=== PATIENT | female | born 1935 | race Caucasian/White ===

== ENCOUNTER 2021-12-14 16:39 | Observation (INO) ==
[2021-12-14] MEDS ORDERED: Naloxone 0.4 MG/ML INJ IVP PRN (20:23)
[2021-12-14] MEDS ORDERED: Melatonin 3 MG TABLET PO PRN (20:23)
[2021-12-14] MEDS ORDERED: Acetaminophen 325 MG TABLET PO PRN (20:23)
[2021-12-14] MEDS ORDERED: MOM Conc 10 ML UD.LIQ PO PRN (20:23)
[2021-12-14] MEDS ORDERED: Ondansetron ODT 4 MG TAB.RAPDIS SL PRN (20:23)
[2021-12-14] MEDS ORDERED: *HR* Heparin 5,000 UNIT/ML VIAL IVP PRN ×2 (21:36)
[2021-12-14] MEDS ORDERED: Heparin 25,000UNIT/250ML 1/2NS 25,000 UNIT/250 ML IV.SOLN IVC SCH (21:45)
[2021-12-14 22:26] LABS: Basophils % 0.5 %; Eosinophils # 0.2 K/mcL (0.0-0.6); Eosinophils % 3.8 %; Hematocrit 28.4 % (35.3-44.9); Hemoglobin 8.8 g/dL (11.5-15.4); Immature Granulocytes % 0.2 % (0-4); Lymphocytes # 1.2 K/mcL (0.6-4.6); Mean Corpuscular Hemoglobin 29.8 pg (28.0-33.3); Mean Corpuscular Volume 96.3 fL (83.0-100.0); Mean Platelet Volume 11.1 fL (9.4-12.4); Monocytes # 0.6 K/mcL (0.0-1.3); Monocytes % 15.2 %; Neutrophils # 2.2 K/mcL (1.6-8.9); Platelet Count 218 K/mcL (140-400); Red Blood Count 2.95 M/mcL (3.82-4.97); Red Cell Distribution Width 13.2 % (11.5-14.5); Segmented Neutrophils % 52.3 %; White Blood Count 4.2 K/mcL (4.3-11.1)
[2021-12-14 22:44] LABS: Potassium 4.1 mEq/L (3.5-5.1)
[2021-12-14 22:48] LABS: Activated Partial Thrombo Time 24.7 Seconds (26.0-36.0)
[2021-12-15] MEDS: Aspirin 81 MG TAB.CHEW PO SCH ×2 (00:43→12:39)
[2021-12-15 06:34] LABS: Hematocrit 27.6 % (35.3-44.9); Hemoglobin 8.6 g/dL (11.5-15.4); Mean Corpuscular HGB Conc 31.2 g/dL (31.6-35.5); Mean Corpuscular Hemoglobin 29.4 pg (28.0-33.3); Mean Corpuscular Volume 94.2 fL (83.0-100.0); Mean Platelet Volume 11.2 fL (9.4-12.4); Platelet Count 219 K/mcL (140-400); Red Blood Count 2.93 M/mcL (3.82-4.97); Red Cell Distribution Width 13.1 % (11.5-14.5)
[2021-12-15 06:57] LABS: Calcium 8.5 mg/dL (8.6-10.3); Magnesium 1.9 mg/dL (1.6-2.6); Phosphorous 3.6 mg/dL (2.7-4.5); Potassium 4.3 mEq/L (3.5-5.1)
[2021-12-15 07:10] LABS: Thyroid Stimulating Hormone 1.526 mcIU/mL (0.340-5.600)
[2021-12-15 07:18] LABS: Folate 19.2 ng/mL (3.0-16.0)
[2021-12-15] MEDS: Budesonide/Formoterol 80/4.5 1 PUFF INH IH SCH ×2 (10:09→20:07)
[2021-12-15 12:36] LABS: Bilirubin,Urine Negative (Negative); Blood,Urine Large (Negative); Clarity,Urine Turbid (Clear); Color,Urine Red (Yellow); Glucose,Urine (UA) Normal (Normal); Ketones,Urine Negative (Negative); Leukocyte Esterase,Urine Negative (Negative); Nitrite,Urine Negative (Negative); Protein,Urine 200 mg/dL (Neg-Trace); Specific Gravity,Urine 1.015 (1.010-1.025); Urobilinogen,Urine Normal (Normal)
[2021-12-15 12:38] LABS: RBC,Urine TNTC per hpf (0-3)
[2021-12-15] MEDS: calcitrioL 0.25 MCG CAPSULE PO SCH (12:39)
[2021-12-15] MEDS: Famotidine 20 MG TABLET PO SCH (12:39)
[2021-12-15] MEDS: clonazePAM 0.5 MG TABLET PO SCH (12:39)
[2021-12-15 14:11] LABS: Adenovirus Not Detected (Not Detect); Bordetella Pertussis Not Detected (Not Detect); Chlamydophila pneumoniae Not Detected (Not Detect); Coronavirus 229E Not Detected (Not Detect); Coronavirus HKU1 Not Detected (Not Detect); Coronavirus NL63 Not Detected (Not Detect); Coronavirus OC43 Not Detected (Not Detect); Human Metapneumovirus Not Detected (Not Detect); Human Rhinovirus/Enterovirus Not Detected (Not Detect); Influenza A Subtype 2009 H1 Not Detected (Not Detect); Influenza B Not Detected (Not Detect); Mycoplasma pneumoniae Not Detected (Not Detect); Parainfluenza Virus 1 Not Detected (Not Detect); Parainfluenza Virus 2 Not Detected (Not Detect); Parainfluenza Virus 3 Not Detected (Not Detect); Parainfluenza Virus 4 Not Detected (Not Detect); Respiratory Syncytial Virus Not Detected (Not Detect); SARS-CoV-2 Not Detected (Not Detect)
[2021-12-16 02:59] LABS: Hematocrit 28.1 % (35.3-44.9); Hemoglobin 8.7 g/dL (11.5-15.4); Mean Corpuscular Hemoglobin 29.6 pg (28.0-33.3); Mean Corpuscular Volume 95.6 fL (83.0-100.0); Mean Platelet Volume 11.1 fL (9.4-12.4); Platelet Count 218 K/mcL (140-400); Red Blood Count 2.94 M/mcL (3.82-4.97); Red Cell Distribution Width 12.8 % (11.5-14.5); White Blood Count 4.5 K/mcL (4.3-11.1)
[2021-12-16 03:17] LABS: Calcium 8.3 mg/dL (8.6-10.3); Potassium 4.7 mEq/L (3.5-5.1)
[2021-12-16 04:03] VITALS: TEMP 98
[2021-12-16] MEDS ORDERED: *HR* Heparin 5,000 UNIT/ML VIAL SQ SCH (06:00)
[2021-12-16] MEDS: Budesonide/Formoterol 80/4.5 1 PUFF INH IH SCH (07:57)
[2021-12-16] MEDS: Aspirin 81 MG TAB.CHEW PO SCH (09:44)
[2021-12-16] MEDS: clonazePAM 0.5 MG TABLET PO SCH (09:44)
[2021-12-16] MEDS: Famotidine 20 MG TABLET PO SCH (09:45)
[2021-12-16] MEDS: calcitrioL 0.25 MCG CAPSULE PO SCH (09:45)
[2021-12-16 10:47] VITALS: BP 151/49; PULSE 90
[2021-12-16 13:34] VITALS: O2SAT 88
[2021-12-16] MEDS ORDERED: cefTRIAXone 1,000 MG in 0.9 % Sodium Chloride 10 ML IVP ONE (17:50)
[2021-12-17] MEDS ORDERED: Famotidine 20 MG TABLET PO SCH (06:30)
[2021-12-18] MEDS ORDERED: calcitrioL 0.25 MCG CAPSULE PO SCH (09:00)
== END 2021-12-16 18:07 ==
LOC: 2NENU → SUATTDRO 19:50
PROVIDERS: ADMIT Pharmacist; ATTEND Student in an Organized Health Care Education/Training Program